=== PATIENT | male | born 1985 | race American Indian/Alaskan Native ===

== ENCOUNTER 2017-05-28 14:07 | Emergency (ER) | payer BC ==
[2017-05-28 14:25] VITALS: BP 156/94
[2017-05-28] MEDS ORDERED: NORCO 5/325 PO ONE (19:17)
[2017-05-28] MEDS ORDERED: TORADOL IM ONE (19:17)
--- NOTE | 2017-05-28 19:18 | Emergency Department Report ---
ED Neck Pain/Injury HPI - General Chief Complaint: Neck Pain/Injury Stated Complaint: NECK PAIN Time Seen by Provider: 05/28/17 19:15 Mode of arrival: Ambulatory Limitations: No Limitations - History of Present Illness Initial Comments: 32-year-old male past medical history neck pain presents with complaint of acute on chronic neck pain which starts in the back of his neck and radiates down to the right shoulder with some intermittent numbness and tingling that can radiates a pinky. Patient states that he has not had any direct trauma. Denies any fever or chills nausea vomiting headache or blurred vision. Denies any tinnitus, blurry vision headache or earache. Denies any direct trauma to head or neck. Patient states that he has been told in the past that he had an issue with nerves of his neck. 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 States that he has been feeling pain over the last 3-4 days. He is awake alert and oriented 3 not in acute distress. Reports no paralysis of any of his limbs. He denies any associated diaphoresis chest pain or palpitations. States that symptoms are often activated by lateral flexion of his neck MD Complaint: neck pain Onset/Timin -: month(s) Radiation: right shoulder, left shoulder Severity: moderate Severity scale (0 -10): 5 Consistency: intermittent Worsens With: movement of neck Context: turning/bending Associated Symptoms: tingling - Related Data Previous Rx's Medication Instructions Recorded Last Taken Type Acetaminophen/Codeine [Tylenol 1 tab PO Q6H PRN #10 tab 05/28/17 Unknown Rx /Codeine # 3 tab] Ibuprofen [Motrin] 800 mg PO Q8HR PRN #25 tablet 05/28/17 Unknown Rx Allergies Allergy/AdvReac Type Severity Reaction Status Date / Time No Known Allergies Allergy Unverified 05/28/17 14:24 ED Review of Systems ROS: Stated complaint: NECK PAIN Other details as noted in HPI Constitutional: denies: chills, fever Eyes: denies: eye pain, eye discharge, vision change ENT: denies: ear pain, throat pain Respiratory: denies: cough, shortness of breath, wheezing Cardiovascular: denies: chest pain, palpitations Endocrine: no symptoms reported Gastrointestinal: denies: abdominal pain, nausea, diarrhea Genitourinary: denies: urgency, dysuria Musculoskeletal: as per HPI. denies: back pain, joint swelling, arthralgia Skin: denies: rash, lesions Neurological: denies: headache, weakness, paresthesias Psychiatric: denies: anxiety, depression Hematological/Lymphatic: denies: easy bleeding, easy bruising ED Past Medical Hx - Past Medical History Previous Medical History?: No - Surgical History Past Surgical History?: No - Social History Smoking Status: Never Smoker Substance Use Type: None - Medications Home Medications: Home Medications Medication Instructions Recorded Confirmed Last Taken Type Acetaminophen/Codeine [Tylenol 1 tab PO Q6H PRN #10 tab 05/28/17 Unknown Rx /Codeine # 3 tab] Ibuprofen [Motrin] 800 mg PO Q8HR PRN #25 tablet 05/28/17 Unknown Rx ED Physical Exam - General Limitations: No Limitations General appearance: alert, in no apparent distress - Head Head exam: Present: atraumatic, normocephalic - Eye Eye exam: Present: normal appearance, PERRL, EOMI - ENT ENT exam: Present: mucous membranes moist - Neck Neck exam: Present: normal inspection, full ROM (neck flexion and extension lateral rotation clinically intact) - Respiratory Respiratory exam: Present: normal lung sounds bilaterally. Absent: respiratory distress - Cardiovascular Cardiovascular Exam: Present: regular rate, normal rhythm. Absent: systolic murmur, diastolic murmur, rubs, gallop - GI/Abdominal GI/Abdominal exam: Present: soft, normal bowel sounds - Rectal Rectal exam: Present: deferred - Extremities Exam Extremities exam: Present: normal inspection - Expanded Upper Extremity Exam Right Shoulder Exam: Present: normal inspection, full ROM (shoulder abduction and abduction and internal and external rotation intact) Upper Arm exam: Present: normal inspection, full ROM Elbow exam: Present: normal inspection, full ROM Forearm Wrist exam: Present: normal inspection, full ROM Hand Wrist exam: Present: normal inspection Neuro motor exam: Present: wrist extension intact, thumb opposition intact, thumb IP flexion intact, thumb adduction intact, fingers 2-5 abduction intact Neurosensory exam: Present: radial nerve intact, ulnar nerve intact, median nerve intact Vascular: Present: normal capillary refill (plan refill less than one second all fingers), radial pulse, brachial pulse, ulnar pulse - Back Exam Back exam: Present: normal inspection - Neurological Exam Neurological exam: Present: alert, oriented X3, CN II-XII intact, normal gait - Expanded Neurological Exam Expanded Patient oriented to: Present: person, place, time Cranial nerves: EOM's Intact: Normal Cerebellar function: Finger to Nose: Normal, Heel to [place]: Normal, Romberg: Normal Sensory exam: Upper Extremity Light Touch: Normal, Upper Extremity Pin Prick: Normal, UE 2 Point Discrimination: Normal, Lower Extremity Light Touch: Normal, Lower Extremity Pin Prick: Normal Motor strength exam: RUE: 5, LUE: 5, RLE: 5, LLE: 5 DTR: bicep (R): 3+, bicep (L): 3+, tricep (R): 3+, tricep (L): 3+, knee (R): 3+ , knee (L): 3+ Best Eye Response (Randolph): (4) open spontaneously Best Motor Response (Essie): (6) obeys commands Best Verbal Response (Essie): (5) oriented Essie Total: 15 - Psychiatric Psychiatric exam: Present: normal affect, normal mood - Skin Skin exam: Present: warm, dry, intact, normal color. Absent: rash ED Course Vital Signs 05/28/17 14:22 Temperature 98 F Pulse Rate 107 H Respiratory 16 Rate Blood Pressure 156/94 O2 Sat by Pulse 96 Oximetry ED Medical Decision Making - Medical Decision Making A/P: Acute on chronic neck pain, cervical radiculopathy 1-imaging shows spurring at C7. Patient has no clinical signs of cord impingement at this time. Strength 5 out of 5 bilateral upper extremities. 2-short course of analgesics. 3-provided patient with referrals to orthopedics and neurosurgery 4- follow up with primary care Critical care attestation.: If time is entered above; I have spent that time in minutes in the direct care of this critically ill patient, excluding procedure time. ED Disposition Clinical Impression: Neck pain Disposition: DC-01 TO HOME OR SELFCARE Is pt being admited?: No Does the pt Need Aspirin: No Condition: Stable Instructions: Cervical Radiculopathy (ED), Musculoskeletal Pain (ED) Prescriptions: Acetaminophen/Codeine [Tylenol /Codeine # 3 tab] 1 tab PO Q6H PRN #10 tab PRN Reason: Pain Ibuprofen [Motrin] 800 mg PO Q8HR PRN #25 tablet PRN Reason: Pain Referrals: FAUSTO MCDANIEL MD [Staff Physician] - 3-5 Days [facility] [Provider Group] - 3-5 Days Forms: Work/School Release Form(ED) Time of Disposition: 20:34
--- NOTE | 2017-05-28 20:20 | Cat Scan Report ---
FINAL REPORT PROCEDURE: CT CERVICAL SPINE WO CON TECHNIQUE: Computerized tomography of the cervical spine was performed from the skull base to T1 without contrast material. HISTORY: neck pain rad to right shoulder COMPARISON: No prior studies are available for comparison. FINDINGS: The vertebral body heights and alignment are maintained. Cervical kyphosis may be related to patient positioning or muscle spasm. No acute fracture or subluxation is seen. There is a focal 5 millimeter sclerotic lesion in the C7 vertebral body, which may be a bone island. IMPRESSION: No acute fracture or subluxation is identified.
== END 2017-05-28 20:40 | disposition home or self-care (01) ==
LOC: ED 14:07
DX: M54.2 Cervicalgia (principal); R20.0 Anesthesia of skin
CPT/HCPCS: 72125; 96372; 99283; J1885